=== PATIENT | male | born 1995 | race Two or more races ===

== ENCOUNTER 2023-10-02 02:07 | Emergency (ER) | payer OTHER ==
[~2023-10-02] VITALS: Ht 172.7 cm; Wt 79.1 kg
[2023-10-02 02:10] VITALS: PULSE 78; RESP 19; TEMP 98.4
[2023-10-02] MEDS ORDERED: ULTRAM 50MG50 MG PO (02:57)
[2023-10-02] MEDS: TETANUS/DIPHTHERIA TOX ADULT 0.5 ML SYR IM ONE (03:24)
[2023-10-02] MEDS ORDERED: BACITRACIN ZINC 0.9GM TP ONE (03:24)
[2023-10-02] MEDS: BACITRACIN ZINC 15 GM OINT TOP ONE (03:24)
[2023-10-02] MEDS: HYDROCODONE/APAP 5MG-325MG TAB PO ONE (03:25)
[2023-10-02 04:56] VITALS: BP 119/69; PULSE 82; RESP 16; TEMP 98.4; O2SAT 99
== END 2023-10-02 05:42 | disposition home or self-care (01) ==
LOC: FSED 02:29
DX: M25.561 Pain in right knee (principal); S80.211A Abrasion, right knee, initial encounter; S70.311A Abrasion, right thigh, initial encounter; W17.89XA Other fall from one level to another, initial encounter; Y92.89 Other specified places as the place of occurrence of the external cause
CPT/HCPCS: 90471; 90714; 99283